=== PATIENT | male | born 2005 | race Caucasian/White ===

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

== ENCOUNTER 2024-10-12 10:05 | Emergency (ER) | payer OTHER ==
[~2024-10-12] VITALS: Ht 177.8 cm; Wt 127.0 kg
[2024-10-12] MEDS ORDERED: LIDODERM1 EACH TOP (11:26)
[2024-10-12] MEDS ORDERED: ONDANSETRON ODT8 MG PO (11:26)
[2024-10-12 11:32] VITALS: BP 119/49
== END 2024-10-12 11:36 | disposition home or self-care (01) ==
LOC: ED 10:05
DX: M54.6 Pain in thoracic spine (principal); M54.50 Low back pain, unspecified; R51.9 Headache, unspecified; N28.1 Cyst of kidney, acquired; E04.9 Nontoxic goiter, unspecified; J45.909 Unspecified asthma, uncomplicated; Z91.010 Allergy to peanuts; Z79.51 Long term (current) use of inhaled steroids; Z79.899 Other long term (current) drug therapy; V85.0XXA Driver of special construction vehicle injured in traffic accident, initial encounter
CPT/HCPCS: 70450; 72128; 72131; 99284-25